=== PATIENT | male | born 1995 | race Two or more races ===

== ENCOUNTER 2019-01-16 18:36 | Emergency (ER) | payer BC, OTHER ==
[~2019-01-16] VITALS: Ht 170.2 cm; Wt 81.6 kg
--- NOTE | 2019-01-16 19:14 | NUR ---
PT HERE WITH C/O DIARRHEA AND CRAMPING, STATES STARTED HAVING BLOOD THIS AM. PT AAO X 4, NAD, ROOM AIR, CALL LIGHT WITHIN REACH. PA AT BEDSIDE FOR RECTAL EXAM. PT IN GOWN AND ATTACHED TO MONITOR. DENIES ANY MEDICLA HX OR DAILY MEDICATIONS.
--- NOTE | 2019-01-16 19:23 | NUR ---
PT TO RADIOLOGY.
--- NOTE | 2019-01-16 19:29 | NUR ---
PT BACK FROM RADIOLOGY.
--- NOTE | 2019-01-16 19:43 | NUR ---
STOOL SENT TO LAB.
[2019-01-16 19:48] LABS: ALANINE AMINOTRANSFERASE 25 U/L (12-78); ALBUMIN 3.8 g/dL (3.4-5.0); ANION GAP 8 mmol/L (5-15); CALCIUM 8.8 mg/dL (8.5-10.1); CHLORIDE 107 mmol/L (98-107); CREATININE 1.05 mg/dL (0.7-1.3)
[2019-01-16 19:54] LABS: ALKALINE PHOSPHATASE 82 U/L (45-117); BILIRUBIN,TOTAL 0.4 mg/dL (0.2-1.0); TOTAL PROTEIN 7.4 g/dL (6.4-8.2)
--- NOTE | 2019-01-16 20:44 | NUR ---
report from YEFRI Larose. assuming care of pt at this time.
--- NOTE | 2019-01-16 20:44 | NUR ---
REPORT GIVEN TO YEFRI RODGERS. CARE TRANSFERRED AT THIS TIME.
[2019-01-16 20:46] LABS: BASOPHILS # (AUTO) 0.03 x10^3/uL (0-0.1); BASOPHILS % (AUTO) 0 % (0-1); EOSINOPHILS # (AUTO) 0.16 x10^3/uL (0-0.4); EOSINOPHILS % (AUTO) 2 % (1-7); LYMPHOCYTES # (AUTO) 1.99 x10^3/uL (1-3.4); LYMPHOCYTES % (AUTO) 28 % (22-44); MD NO; MEAN CORPUSCULAR HEMOGLOBIN 30.6 pg (27.5-34.5); MEAN CORPUSCULAR HGB CONC 33.2 g/dL (33.2-36.2); MEAN CORPUSCULAR VOLUME 92.3 fL (81-97); MEAN PLATELET VOLUME 8.2 fL (7.4-10.4); MONOCYTES # (AUTO) 0.77 x10^3/uL (0.2-0.8); MONOCYTES % (AUTO) 11 % (2-9); NEUTROPHILS # (AUTO) 4.13 x10^3/uL (1.8-6.8); NEUTROPHILS % (AUTO) 58 % (42-75); PLATELET COUNT 230 x10^3/uL (130-400); RED BLOOD COUNT 4.95 x10^6/uL (4.38-5.82); RED CELL DISTRIBUTION WIDTH 12.8 % (9.4-14.8)
[2019-01-16 20:51] LABS: CLOSTRIDIUM DIFFICILE ANTIGEN NEGATIVE; CLOSTRIDIUM DIFFICILE TOXIN NEGATIVE (Negative)
[2019-01-16 20:56] VITALS: BP 124/56
--- NOTE | 2019-01-16 20:56 | NUR ---
PT RESTING IN ROOM WITH LIGHTS DIMMED. VSS. NO NEEDS EXPRESSED. CALL LIGHT WITHIN REACH. AWAITING LAB RESULTS.
== END 2019-01-16 21:10 | disposition home or self-care (01) ==
LOC: ED 21:00
DX: R19.7 Diarrhea, unspecified (principal); R10.84 Generalized abdominal pain
CPT/HCPCS: 36415; 74021; 80053; 83690; 85025; 87324; 89055; 99284